=== PATIENT | female | born 1985 | race Caucasian/White ===

== ENCOUNTER 2018-11-18 17:59 | Emergency (ER) | payer MEDICAID ==
[~2018-11-18] VITALS: Ht 167.6 cm; Wt 65.9 kg
[2018-11-18 18:00] VITALS: BP 122/63
[2018-11-18] MEDS ORDERED: BENZ-16 PO (18:30)
[2018-11-18] MEDS ORDERED: GUAI237S46 PO (18:30)
== END 2018-11-18 18:52 | disposition home or self-care (01) ==
LOC: ER 18:00
DX: J06.9 Acute upper respiratory infection, unspecified (principal); J04.0 Acute laryngitis; Z79.899 Other long term (current) drug therapy; Z90.89 Acquired absence of other organs
CPT/HCPCS: 99283